=== PATIENT | male | born 2000 | race Caucasian/White ===

== ENCOUNTER 2024-10-04 14:21 | Emergency (ER) | payer OTHER ==
[2024-10-04 14:28] VITALS: TEMP 98
[2024-10-04] MEDS ORDERED: BABY ASPIRIN 81 MG CHEW ONE (14:51)
[2024-10-04 14:52] LABS: Absolute Neutrophil Ct (ANC) 4.47 x10^3/uL (1.78-5.38); BASOPHIL % 0.4 % (0.2-1.2); Basophil (Absolute #) 0.03 x10^3/uL (0.01-0.08); Eosinophil % 2.4 % (0.8-7.0); Eosinophil (Absolute #) 0.18 x10^3/uL (0.04-0.54); Hematocrit 49.4 % (40.1-51.0); Hemoglobin 17.7 g/dL (13.7-17.5); IMMATURE GRAN # 0.02 x10^3u/L (0.001-0.031); IMMATURE GRAN % 0.3 % (0.001-0.429); Lymphocyte (Absolute #) 2.19 x10^3/uL (1.32-3.57); Lymphocytes % 29.4 % (21.8-53.1); Mean Cell Volume 86.8 fL (79.0-92.2); Mean Corpuscular Hemoglobin 31.1 pg (25.7-32.2); Mean Corpuscular Hgb Concent. 35.8 g/dL (32.3-36.5); Mean Platelet Volume 10.1 fL (9.4-12.4); Monocyte (Absolute #) 0.57 x10^3/uL (0.30-0.82); Monocytes % 7.6 % (5.3-12.2); Neutrophil % 59.9 % (34.0-67.9); Platelet Count 235 x10^3/uL (163-337); Red Blood Count 5.69 x10^6/uL (4.63-6.08); Red Cell Distribution Width 11.6 % (11.6-14.4); White Blood Count 7.5 x10^3/uL (4.23-9.07)
[2024-10-04] MEDS: BABY ASPIRIN 81 MG CHEW PO ONE (14:56)
[2024-10-04 15:15] LABS: ALBUMIN 5.6 g/dL (3.5-5.0); ALKALINE PHOSPHATASE 82 U/L (38-126); ANION GAP 18.2 MEQ/L (5-15); BLOOD UREA NITROGEN 20 mg/dL (9-20); CHLORIDE 101 mmol/L (98-107); Calcium 10.4 mg/dL (8.4-10.2); Carbon Dioxide 27 mmol/L (22-30); Creatinine 1 1.02 mg/dL (0.66-1.25); EST GLOMERULAR FILTRATION RATE 105.3 ML/MIN; Glucose 86 mg/dL (74-106); NT PRO BNPII < 20.0 pg/mL (<300); Potassium 4.2 mmol/L (3.5-5.1); SGOT/AST 53 U/L (17-59); SGPT/ALT 46 U/L (0-50); SODIUM 141 mmol/L (135-145); Total Protein 9.2 g/dL (6.3-8.2)
--- NOTE | 2024-10-04 15:23 | ERPHSYRPT ---
- History of Present Illness Time Seen by Provider: 10/04/24 14:22 Historian: patient, family Exam Limitations: no limitations Patient Subjective Stated Complaint: Pt states "I have had random chest pain on and off all week. Usually happens at work or the gym." Triage Nursing Assessment: Pt presented alert and oriented x 3, skin pwd.Pt ambulates with an upright steady gait able to speak in clear full sentences. PT resting comfortably on the bed. Physician History: 24-year-old presented in the ER with complaints of intermittent chest pains for 1 week, sharp moderate intensity on the left side lasting for few seconds with some radiation to the back/scapular area at times without palpitations or shortness of breath. Improves on its own without any intervention. Usually it happens when at work or in the gym. Patient work involves lifting fairly heavy objects. Denies any fall or trauma. No history of previous chest pains. No cough or congestion reported. Patient denies having any chest pain today. He went to urgent care for checkup and is sent in here for further evaluation. Aspirin Treatment Today: provided by ED Allergies/Adverse Reactions: No Known Drug Allergies Allergy (Verified 10/04/24 14:28) Home Medications: No Reportable Medications [No Reported Medications] 10/04/24 [History] Hx Tetanus, Diphtheria Vaccination/Date Given: No Hx Influenza Vaccination/Date Given: No Hx Pneumococcal Vaccination/Date Given: No Immunizations Up to Date: No Travel Risk - International Travel Have you traveled outside of the country in past 3 weeks: No - Emerging Infectious Disease Are you exhibiting symptoms associated with any current EIDs: No - Review of Systems Constitutional: No Symptoms Eyes: No Symptoms Ears, Nose, & Throat: No Symptoms Respiratory: No Symptoms Cardiac: Chest Pain Abdominal/Gastrointestinal: No Symptoms Genitourinary Symptoms: No Symptoms Musculoskeletal: No Symptoms Skin: No Symptoms Neurological: No Symptoms Psychological: No Symptoms Endocrine: No Symptoms Hematologic/Lymphatic: No Symptoms Immunological/Allergic: No Symptoms - Past Medical History Pertinent Past Medical History: No - Past Surgical History Past Surgical History: Yes - Social History Smoking Status: Never smoker Exposure to second hand smoke: No Drug Use: none - Social Determinants of Health Will the patient participate in the screening: Declined to provide - Nursing Vital Signs Nursing Vital Signs: Initial Vital Signs Temperature 98.0 F 10/04/24 14:21 Pulse Rate 75 10/04/24 14:21 Respiratory Rate 20 10/04/24 14:21 Blood Pressure 146/89 10/04/24 14:21 O2 Sat by Pulse Oximetry 100 10/04/24 14:21 Pain Scale Pain Intensity 4 - Physical Exam General Appearance: no apparent distress Eye Exam: PERRL/EOMI Ears, Nose, Throat Exam: normal ENT inspection Neck Exam: normal inspection, non-tender, supple, full range of motion Respiratory Exam: normal breath sounds, lungs clear, No chest tenderness Cardiovascular Exam: regular rate/rhythm, normal heart sounds Gastrointestinal/Abdomen Exam: soft, normal bowel sounds, No tenderness Back Exam: normal inspection, normal range of motion Extremity Exam: normal inspection, normal range of motion Neurologic Exam: alert, oriented x 3, cooperative Skin Exam: normal color, warm SpO2 Interpretation: normal SpO2: 98 O2 Delivery: Room Air - Course EKG Interpreted by Me: RATE (80), Sinus Rhythm, NORMAL AXIS, NORMAL INTERVALS, NORMAL QRS Ordered Tests: Active Orders 24 hr Category Date Time Status Furnace Room Supervisor STAT Care 10/04/24 14:48 Completed EKG-ER Only STAT Care 10/04/24 14:48 Completed IV Insertion STAT Care 10/04/24 14:48 Completed Pulse Oximetry (ED) STAT Care 10/04/24 14:48 Completed CHEST 1 VIEW (PORTABLE) Stat Exams 10/04/24 15:17 Completed CBC W DIFF Stat Lab 10/04/24 14:45 Completed CMP Stat Lab 10/04/24 14:45 Completed D-DIMER QUANTITATIVE Stat Lab 10/04/24 14:45 Completed NT PRO BNPII Stat Lab 10/04/24 14:45 Completed TROPONIN Q4H Lab 10/04/24 14:45 Completed Medication Summary Discontinued Medications Generic Name Dose Route Start Last Admin Trade Name Freq PRN Reason Stop Dose Admin Aspirin 324 mg 10/04/24 14:48 10/04/24 14:56 Aspirin 81 Mg Tab.Chew PO 10/04/24 14:49 324 mg STAT ONE Administration Aspirin Confirm 10/04/24 14:51 Aspirin 81 Mg Tab.Chew Administered 10/04/24 14:52 Dose 324 mg .ROUTE .STK-MED ONE Lab/Rad Data: Laboratory Result Diagrams 10/04/24 14:45 10/04/24 14:45 Laboratory Results 10/04/24 10/04/24 10/04/24 Range/Units 14:45 14:45 14:45 WBC (4.23-9.07) x10^3/uL RBC (4.63-6.08) x10^6/uL Hgb (13.7-17.5) g/dL Hct (40.1-51.0) % MCV (79.0-92.2) fL MCH (25.7-32.2) pg MCHC (32.3-36.5) g/dL RDW (11.6-14.4) % Plt Count (163-337) x10^3/uL MPV (9.4-12.4) fL Gran % (34.0-67.9) % Immature Gran % (Auto) (0.001-0.429) % Nucleat RBC Rel Count (0.00-0.2) % Eos # (Auto) (0.04-0.54) x10^3/uL Immature Gran # (Auto) (0.001-0.031) x10^3u/L Absolute Lymphs (auto) (1.32-3.57) x10^3/uL Absolute Monos (auto) (0.30-0.82) x10^3/uL Absolute Nucleated RBC (0.00-0.012) x10^3u/L Lymphocytes % (21.8-53.1) % Monocytes % (5.3-12.2) % Eosinophils % (0.8-7.0) % Basophils % (0.2-1.2) % Absolute Granulocytes (1.78-5.38) x10^3/uL Basophils # (0.01-0.08) x10^3/uL D-Dimer < 0.19 (0.0-0.50) mg/L Sodium 141 (135-145) mmol/L Potassium 4.2 (3.5-5.1) mmol/L Chloride 101 (98-107) mmol/L Carbon Dioxide 27 (22-30) mmol/L Anion Gap 18.2 H (5-15) MEQ/L BUN 20 (9-20) mg/dL Creatinine 1.02 (0.66-1.25) mg/dL Estimated GFR 105.3 ML/MIN Glucose 86 (74-106) mg/dL Calcium 10.4 H (8.4-10.2) mg/dL Total Bilirubin 1.10 (0.2-1.3) mg/dL AST 53 (17-59) U/L ALT 46 (0-50) U/L Alkaline Phosphatase 82 (38-126) U/L Troponin I < 0.012 (0.000-0.033) ng/mL NT-Pro-B Natriuret Pep < 20.0 (<300) pg/mL Serum Total Protein 9.2 H (6.3-8.2) g/dL Albumin 5.6 H (3.5-5.0) g/dL 10/04/24 Range/Units 14:45 WBC 7.5 (4.23-9.07) x10^3/uL RBC 5.69 (4.63-6.08) x10^6/uL Hgb 17.7 H (13.7-17.5) g/dL Hct 49.4 (40.1-51.0) % MCV 86.8 (79.0-92.2) fL MCH 31.1 (25.7-32.2) pg MCHC 35.8 (32.3-36.5) g/dL RDW 11.6 (11.6-14.4) % Plt Count 235 (163-337) x10^3/uL MPV 10.1 (9.4-12.4) fL Gran % 59.9 (34.0-67.9) % Immature Gran % (Auto) 0.3 (0.001-0.429) % Nucleat RBC Rel Count 0.0 (0.00-0.2) % Eos # (Auto) 0.18 (0.04-0.54) x10^3/uL Immature Gran # (Auto) 0.02 (0.001-0.031) x10^3u/L Absolute Lymphs (auto) 2.19 (1.32-3.57) x10^3/uL Absolute Monos (auto) 0.57 (0.30-0.82) x10^3/uL Absolute Nucleated RBC 0.00 (0.00-0.012) x10^3u/L Lymphocytes % 29.4 (21.8-53.1) % Monocytes % 7.6 (5.3-12.2) % Eosinophils % 2.4 (0.8-7.0) % Basophils % 0.4 (0.2-1.2) % Absolute Granulocytes 4.47 (1.78-5.38) x10^3/uL Basophils # 0.03 (0.01-0.08) x10^3/uL D-Dimer (0.0-0.50) mg/L Sodium (135-145) mmol/L Potassium (3.5-5.1) mmol/L Chloride (98-107) mmol/L Carbon Dioxide (22-30) mmol/L Anion Gap (5-15) MEQ/L BUN (9-20) mg/dL Creatinine (0.66-1.25) mg/dL Estimated GFR ML/MIN Glucose (74-106) mg/dL Calcium (8.4-10.2) mg/dL Total Bilirubin (0.2-1.3) mg/dL AST (17-59) U/L ALT (0-50) U/L Alkaline Phosphatase (38-126) U/L Troponin I (0.000-0.033) ng/mL NT-Pro-B Natriuret Pep (<300) pg/mL Serum Total Protein (6.3-8.2) g/dL Albumin (3.5-5.0) g/dL - Progress Progress: improved, unchanged Air Movement: good Progress Note: 10/04/24 15:54 24-years old healthy male is evaluated in the ER for intermittent left-sided chest pains for 1 week which last for few seconds. Patient does not have any chest pain at present. EKG is sinus rhythm with no acute ST elevations and negative troponin/D-dimers. Chest x-ray is negative for any acute cardiopulmonary findings interpreted by me followed by official read which is reviewed as negative as well. Patient has low heart score, pain does not seems to be typical for cardiac, could have some element of musculoskeletal which happens with exertion. Recommended outpatient follow-up. Discussed signs symptoms of worsening return to ER which patient/mom seem understanding. Discussed signs symptoms of worsening needing return to ER which they seem understanding as well. Complexity of problems addressed: Moderate acute Complexity of data reviewed/analyzed: Moderate Risk of complications: Low risk Counseled pt/family regarding: lab results, diagnosis, need for follow-up, rad results Medical Desision Making - Independent Historian Additional History obtained from: Mother - Diagnostic Testing Diagnostic test were ordered, analyzed, and reviewed by me: Yes Radiological Interpretation: Interpreted by me, Reviewed by me - Departure Departure Disposition: Home Clinical Impression: Atypical chest pain Condition: Stable Critical Care Time: No Referrals: ANABEL ANDREWS MD [ACTIVE STAFF, [facility]] - Follow up/PCP as directed Referral Note: Call for appointment for reevaluation Instructions: Atypical Chest Pain Additional Instructions: Take Tylenol/ibuprofen as needed. Follow-up with primary care for reevaluation. Return to ER for any worsening.
--- NOTE | 2024-10-04 15:48 | XRAY ---
Indication: Chest pain. Comparison: None Portable chest demonstrates normal heart, lungs, and bony thorax.
[2024-10-04 16:34] VITALS: BP 127/69; PULSE 69; RESP 16
[2024-10-04 18:11] VITALS: O2SAT 98
== END 2024-10-04 16:36 | disposition home or self-care (01) ==
LOC: ED 14:21
DX: R07.89 Other chest pain (principal)
CPT/HCPCS: 36415; 71045; 80053; 83880; 84484; 85025; 85379; 93005; 93041; 94760; 99284; 99285; A9270-GY